=== PATIENT | male | born 1960 | race Two or more races ===

== ENCOUNTER 2016-08-20 12:25 | Observation (INO) | payer OTHER ==
--- NOTE | 2016-08-20 14:03 | ED ---
General Adult HPI - General Chief complaint: Chest Pain Stated complaint: HBP Time Seen by Provider: 08/20/16 13:44 Source: patient, family, precinct police lieutenant Mode of arrival: ambulatory Limitations: language barrier - History of Present Illness Initial comments: 56-year-old male presenting for sore throat and chest pain. Patient states this is been an issue intermittently for the past 4 months but worsening over the past few days. He denies any shortness of breath associated. Denies any fevers or chills. He does smoke cigarettes. He denies any cough. He has not tried any medications for this. He has not followed up with a regular doctor for this. Patient does speak Georgian there is a language barrier. Patient's friend is present with him and translating. They were offered an precinct police lieutenant but they declined. - Related Data Home Medications Medication Instructions Recorded Confirmed No Known Home Medications [No 08/20/16 08/20/16 Known Home Medications] Allergies Allergy/AdvReac Type Severity Reaction Status Date / Time No Known Allergies Allergy Verified 08/20/16 13:53 Review of Systems ROS Statement: Those systems with pertinent positive or pertinent negative responses have been documented in the HPI. ROS Other: All systems not noted in ROS Statement are negative. Past Medical History Past Medical History: Hyperlipidemia History of Any Multi-Drug Resistant Organisms: None Reported Past Surgical History: No Surgical Hx Reported Past Psychological History: No Psychological Hx Reported Smoking Status: Current every day smoker Past Alcohol Use History: None Reported Past Drug Use History: None Reported General Exam - General Exam Comments Initial Comments: General: Awake and Alert. No acute distress. Does not appear acutely ill. Eyes: ASHOK, EOM intact. No nystagmus. No scleral icterus. HENT: Atraumatic, normocephalic. Mucous membranes moist. Trachea midline. Poor dentition. Neck: The neck is supple, there is no tenderness or JVD. Cardiovascular: Regular rate and rhythm. No murmur, rub, or gallop is appreciated. Distal pulses intact. Respiratory: Lungs are clear to auscultation bilaterally. No wheezes, rales, rhonchi. No respiratory distress. Gastrointestinal: Soft, Nontender. No rebound or guarding. Non-distended. No masses or organomegaly noted. No CVA tenderness. Musculoskeletal: No tenderness. Normal ROM. No gross deformity. No strength deficits. Neurological: A&Ox3. CN II-XII grossly intact, There are no obvious motor or sensory deficits. Coordination appears grossly intact. Speech is normal. Skin: Skin is warm and dry and no rashes or lesions are noted. Psychiatric: Cooperative, appropriate mood & affect, normal judgment. Limitations: language barrier Course Vital Signs 08/20/16 08/20/16 08/20/16 13:27 14:07 15:07 Temperature 97.7 F Pulse Rate 62 55 L 57 L Respiratory 17 16 16 Rate Blood Pressure 128/83 128/76 144/85 O2 Sat by Pulse 100 97 98 Oximetry 08/20/16 16:37 Temperature 98.2 F Pulse Rate 58 L Respiratory 16 Rate Blood Pressure 133/85 O2 Sat by Pulse 99 Oximetry EKG Findings - EKG Comments: EKG Findings:: EKG 13:40. Normal sinus rhythm. Rate 62. CO 124. QRS 86. QT/ QTc 42/408. Normal axis. No STEMI. Normal EKG. Medical Decision Making - Medical Decision Making 56-year-old male presented for sore throat and chest pain. Lab work was stable CBC. Stable BMP. Initial troponin is negative. Patient reevaluated and states that he is feeling well overall. He does state that he is feeling some shortness of breath at this time. Patient ordered breathing treatment. Updated patient and friend on labs and imaging. Discussed concern for age and risk factors for further evaluation of ACS rule out and stress testing. Patient is agreeable to this. Discussed with Dr. Fung, agrees with plan for admit. - Lab Data Result diagrams: 08/20/16 14:05 08/20/16 14:05 Lab Results 08/20/16 08/20/16 08/20/16 Range/Units 14:05 14:05 14:05 WBC 3.8 (3.8-10.6) k/uL RBC 6.07 H (4.30-5.90) m/uL Hgb 15.9 (13.0-17.5) gm/dL Hct 49.2 (39.0-53.0) % MCV 81.1 (80.0-100.0) fL MCH 26.2 (25.0-35.0) pg MCHC 32.2 (31.0-37.0) g/dL RDW 12.3 (11.5-15.5) % Plt Count 194 (150-450) k/uL Neutrophils % 51 % Lymphocytes % 35 % Monocytes % 8 % Eosinophils % 3 % Basophils % 1 % Neutrophils # 2.0 (1.3-7.7) k/uL Lymphocytes # 1.3 (1.0-4.8) k/uL Monocytes # 0.3 (0-1.0) k/uL Eosinophils # 0.1 (0-0.7) k/uL Basophils # 0.0 (0-0.2) k/uL Sodium 137 (137-145) mmol/L Potassium 4.1 (3.5-5.1) mmol/L Chloride 104 (98-107) mmol/L Carbon Dioxide 29 (22-30) mmol/L Anion Gap 4 mmol/L BUN 17 (9-20) mg/dL Creatinine 0.90 (0.66-1.25) mg/dL Est GFR (MDRD) Af Amer >60 (>60 ml/min/1.73 sqM) Est GFR (MDRD) Non-Af >60 (>60 ml/min/1.73 sqM) Glucose 73 L (74-99) mg/dL Calcium 8.7 (8.4-10.2) mg/dL Magnesium 2.0 (1.6-2.3) mg/dL Troponin I 0.021 (0.000-0.034) ng/mL - EKG Data -: EKG Interpreted by [facility] EKG shows normal: sinus rhythm Rate: normal - Radiology Data Radiology results: report reviewed, image reviewed Disposition Clinical Impression: Chest pain, SOB (shortness of breath), Tobacco abuse Disposition: ADMITTED IP TO THIS [facility] Condition: Stable Decision to Admit Reason: Admit from EC
[2016-08-20 14:21] LABS: Basophils % (A) 1 %; CH 26.2; CHCM 32.5; Eosinophils # (A) 0.1 k/uL (0-0.7); Eosinophils % (A) 3 %; HCT 49.2 % (39.0-53.0); HDW 2.66; HGB 15.9 gm/dL (13.0-17.5); Luc % (Auto) 3; Lymphocytes # (A) 1.3 k/uL (1.0-4.8); Lymphocytes % (A) 35 %; MCH 26.2 pg (25.0-35.0); MCHC 32.2 g/dL (31.0-37.0); MCV 81.1 fL (80.0-100.0); Mean Platelet Volume 6.7; Monocytes # (A) 0.3 k/uL (0-1.0); Monocytes % (A) 8 %; Neutrophils % (A) 51 %; RBC 6.07 m/uL (4.30-5.90); RDW 12.3 % (11.5-15.5); WBC 3.8 k/uL (3.8-10.6); WBC (Perox) 3.59
[2016-08-20 14:33] LABS: Anion Gap 4 mmol/L; Blood Urea Nitrogen 17 mg/dL (9-20); Calcium 8.7 mg/dL (8.4-10.2); Carbon Dioxide 29 mmol/L (22-30); Chloride 104 mmol/L (98-107); Glucose 73 mg/dL (74-99); Non-African American GFR(MDRD) >60 (>60 ml/min/1.73 sqM); Potassium 4.1 mmol/L (3.5-5.1); Sodium 137 mmol/L (137-145)
--- NOTE | 2016-08-20 15:17 | XR ---
EXAMINATION TYPE: XR chest 2V DATE OF EXAM: 08/20/2016 3:03 PM COMPARISON: Prior chest x-ray for April 2014 HISTORY: Hypertension and pain TECHNIQUE: Frontal and lateral views of the chest are obtained. FINDINGS: There is no focal air space opacity, pleural effusion, or pneumothorax seen. The cardiac silhouette size is within normal limits. There are overlying cardiac leads. There is eventration of t he right hemidiaphragm. The osseous structures are intact. IMPRESSION: No acute cardiopulmonary process.
[2016-08-20] MEDS ORDERED: ASPIRIN 81 MG CHEW PO STA (15:42)
[2016-08-20] MEDS ORDERED: IPRATROPIUM-ALBUTEROL 3 ML NEB INHALATION STA (15:42)
[2016-08-20] MEDS ORDERED: ACETAMINOPHEN TAB 325 MG TAB PO PRN (15:44)
[2016-08-20] MEDS ORDERED: NALOXONE 0.4 MG/ML 1 ML VIAL IV PRN (15:44)
[2016-08-20] MEDS ORDERED: ONDANSETRON 4 MG/2 ML VIAL IVP PRN (15:44)
[2016-08-20] MEDS ORDERED: NITROGLYCERIN SL TABS 0.4 MG TAB SUBLINGUAL PRN (15:45)
[2016-08-20 16:27] LABS: Glucose,Whole Blood 85 mg/dL (75-99)
[2016-08-20] MEDS: HEPARIN SODIUM,PORCINE 5,000 UNIT/ML 1 ML VIAL SQ SCH ×2 (20:15→20:46)
[2016-08-20 21:04] LABS: Creatine Kinase MB 0.3 ng/mL (0.0-2.4); Troponin I 0.02 ng/mL (0.000-0.034)
[2016-08-21 03:03] LABS: Basophils % (A) 1 %; CH 26.2; CHCM 32.3; Eosinophils # (A) 0.1 k/uL (0-0.7); Eosinophils % (A) 2 %; HCT 46.8 % (39.0-53.0); HDW 2.64; HGB 15.4 gm/dL (13.0-17.5); Luc # (Auto) 0.11; Luc % (Auto) 2; Lymphocytes # (A) 1.7 k/uL (1.0-4.8); Lymphocytes % (A) 36 %; MCH 26.7 pg (25.0-35.0); MCHC 32.8 g/dL (31.0-37.0); MCV 81.3 fL (80.0-100.0); Mean Platelet Volume 7.6; Monocytes # (A) 0.3 k/uL (0-1.0); Monocytes % (A) 6 %; Neutrophils # (A) 2.5 k/uL (1.3-7.7); Neutrophils % (A) 53 %; RBC 5.76 m/uL (4.30-5.90); RDW 12.2 % (11.5-15.5); WBC 4.7 k/uL (3.8-10.6); WBC (Perox) 4.93
[2016-08-21 03:16] LABS: Anion Gap 8 mmol/L; Blood Urea Nitrogen 23 mg/dL (9-20); Calcium 8.8 mg/dL (8.4-10.2); Carbon Dioxide 22 mmol/L (22-30); Chloride 108 mmol/L (98-107); Cholesterol 238 mg/dL (<200); Glucose 106 mg/dL (74-99); HDL Cholesterol 29 mg/dL (40-60); Non-African American GFR(MDRD) >60 (>60 ml/min/1.73 sqM); Potassium 4.4 mmol/L (3.5-5.1); Sodium 138 mmol/L (137-145)
[2016-08-21 03:18] LABS: Creatine Kinase 54 U/L (55-170)
[2016-08-21 03:31] LABS: Creatine Kinase MB <0.2 ng/mL (0.0-2.4)
[2016-08-21 03:37] LABS: Triglycerides 799 mg/dL (<150)
[2016-08-21 06:24] LABS: Cholesterol 238 mg/dL (<200); HDL Cholesterol 31 mg/dL (40-60); Triglycerides 481 mg/dL (<150)
[2016-08-21] MEDS ORDERED: ASPIRIN 325 MG TAB PO SCH (09:00)
[2016-08-21] MEDS: HEPARIN SODIUM,PORCINE 5,000 UNIT/ML 1 ML VIAL SQ SCH (09:25)
[2016-08-21 10:22] VITALS: RESP 18
--- NOTE | 2016-08-21 10:24 | P.HPIM ---
History of Present Illness H&P Date: 08/21/16 Chief Complaint: Chest pain This is a 56-year-old male, a patient of Dr. Crain. He has a known past medical history of nicotine dependence and hyperlipidemia. Patient is not on any medications at home. It is difficult to obtained history. There is a language barrier. Patient only speaks Italian. Patient's cousin was able to help translate. It appears patient came in with chest pains in the center of his chest that has worsened over the last few days. Patient has cough but reports that it's not new. Asked if he has a sore throat. At this time he denies sore throat. Denies any fevers chills or sweats. Denies any shortness of breath. Denies any nausea or vomiting. Denies any bowel movement changes or urinary symptoms. Denies any past cardiac history. Patient has been admitted to the observation floor cardiology has been consulted. Troponins are negative 3 sets EKG shows normal sinus rhythm. Chest x-ray was negative. He did have hypertrophic glycemia with a triglyceride level of 799 and repeat was 481. Cholesterol 238 HDL 31 Review of Systems Please refer to HPI otherwise unremarkable Past Medical History Past Medical History: Chest Pain / Angina, Hyperlipidemia, Prostate Disorder Additional Past Medical History / Comment(s): pt/family refused the sign language interpreter line. family member elsa helped w/ hx. enlarged prostate, occ dizziness, murmur ,uses glasses for reading, some loss hearing rt ear,color blind History of Any Multi-Drug Resistant Organisms: None Reported Past Surgical History: No Surgical Hx Reported Additional Past Surgical History / Comment(s): denies ever having any sx Past Anesthesia/Blood Transfusion Reactions: No Reported Reaction Past Psychological History: No Psychological Hx Reported Additional Psychological History / Comment(s): lives with and brother. Smoking Status: Current every day smoker Past Alcohol Use History: None Reported Additional Past Alcohol Use History / Comment(s): started smoking age 19 , smokes 1 ppd. Past Drug Use History: None Reported - Past Family History Father Family Medical History: No Reported History Mother Family Medical History: No Reported History Medications and Allergies Home Medications Medication Instructions Recorded Confirmed Type No Known Home Medications [No 08/20/16 08/20/16 History Known Home Medications] Allergies Allergy/AdvReac Type Severity Reaction Status Date / Time No Known Allergies Allergy Verified 08/20/16 13:53 Physical Exam Vitals: Vital Signs Temp Pulse Pulse Resp BP BP Pulse Ox 08/21/16 08:00 97.9 F 60 16 106/65 98 08/21/16 04:00 97.8 F 64 16 120/68 97 08/21/16 00:00 98.2 F 63 16 126/77 96 08/20/16 20:00 98.3 F 68 16 132/77 98 08/20/16 17:11 97.8 F 61 18 129/75 100 08/20/16 16:37 98.2 F 58 L 16 133/85 99 Intake and Output 08/20/16 08/21/16 08/21/16 22:59 06:59 14:59 Other: Voiding Method Toilet Toilet Weight 75.3 kg Head normocephalic Neck supple Lungs coarse breath sounds that clear with cough Heart regular rate and rhythm S1-S2, no rub or gallop Abdomen is soft nontender nondistended positive bowel sounds no hepatosplenomegaly Extremities no edema Neuro alert and orientated to 3 Results CBC & Chem 7: 08/21/16 02:07 08/21/16 02:07 Labs: Abnormal Lab Results - Last 24 Hours (Table) 08/21/16 08/21/16 08/21/16 Range/Units 02:07 02:07 05:34 Chloride 108 H (98-107) mmol/L BUN 23 H (9-20) mg/dL Glucose 106 H (74-99) mg/dL Total Creatine Kinase 54 L (55-170) U/L Triglycerides 799 H 481 H (<150) mg/dL Cholesterol 238 H 238 H (<200) mg/dL HDL Cholesterol 29 L 31 L (40-60) mg/dL Thrombosis Risk Factor Assmnt - Choose All That Apply Any of the Below Risk Factors Present?: Yes Each Factor Represents 1 point: Age 41-60 years, Obesity (BMI >25) Other Risk Factors: No Other congenital or acquired thrombophilia - If yes, enter type in comment: No Thrombosis Risk Factor Assessment Total Risk Factor Score: 2 Thrombosis Risk Factor Assessment Level: Low Risk Assessment and Plan Plan: 1. Chest pain: [place] ruled out. Troponins negative 3 sets. EKG showing normal sinus rhythm. Cardiology has been consulted. D-dimer level pending. Echo pending. Continue aspirin 2. Hyperlipidemia and hypertriglyceridemia: Discussed low-fat low-cholesterol diet. 3. Nicotine dependence: Discussed most smoking cessation for greater than [address] patient on nicotine patch 4. DVT prophylaxis subcu heparin and GI prophylaxis Pepcid Time with Patient: Greater than 30 (Greater than 50% of the total time spent in counseling and coordination of care.I performed an examination of the patient and discussed their management with the physician Funeral Arranger. I have reviewed the Physician Funeral Arranger's notes and agree with the documented findings and plan of care)
[2016-08-21] MEDS ORDERED: NICOTINE 21MG/24HR PATCH TRANSDERM SCH (10:30)
[2016-08-21] MEDS ORDERED: AMINOPHYLLINE 500 MG/20 ML VIAL IV PRN (10:49)
[2016-08-21] MEDS ORDERED: REGADENOSON 0.4 MG/5 ML SYRINGE IV ONE (10:49)
--- NOTE | 2016-08-21 11:49 | CONS ---
DATE OF CONSULTATION: Nicolette Rios is a 56-year-old gentleman. Consultation requested by Dr. Fung. Because of communication problems with language communication problem, unable to get a great history other than [id number] to get some information from the family members, which is also very sketchy. Patient is a smoker, 1 pack of cigarettes daily. The patient's EKGs have been normal. Enzymes have been normal. Chest x-rays have been normal. Patient has been having recurrent chest heaviness and pressure, pain intermittently with and without exertion, lasting only for a few seconds, comes and goes. In view of these atypical symptoms and cardiac enzymes are normal, EKGs are normal, will proceed with noninvasive studies because of language problems and unable to get a detailed history. Echocardiogram was done at the bedside and appears to be within normal limits. Family saw a few pictures, a few scans, first chamber looked fairly decent. Patient's review of systems cannot be obtained because of language problems. The patient does have hyperlipidemia. Cholesterol was also elevated at 238, triglycerides of 792 and HDL of 29. Patient is a current smoker and could not ascertain any family history of coronary artery disease. Physical examination revealed well-developed, well-nourished 56-year-old gentleman, not in any acute distress, oriented x3 with a pulse rate of 64 beats per minute and regular, blood pressure 120/68, respirations are 16. Head normocephalic. HEENT unremarkable. Neck is supple. No thyroid enlargement. No bruit noted. Good carotid upstroke bilaterally. Chest is symmetrical. CARDIAC EXAMINATION: Regular rate and rhythm. S1 and S2. Scattered rhonchi noted. Lungs are clinically to auscultation with scattered rhonchi. ABDOMEN: Soft, no organomegaly. Active bowel sounds. EXTREMITIES: Peripheral pulses. No pedal edema. APICULTURIST examination: Grossly within normal limits. EKG revealed normal sinus rhythm, normal ST-T waves x2. Cardiac enzymes x3 are negative. ASSESSMENT: 1. Atypical chest pains. 2. Long-standing history of smoking. RECOMMENDATIONS: Proceed with Lexiscan to rule out underlying ischemic heart disease. If this study is normal, patient will be able to go home with complete cessation of smoking. Advice was given to the patient and family. Patient will follow with Dr. Fung and cardiac follow up with Dr. Samman because I cannot communicate because of the language barrier.
[2016-08-21 11:51] VITALS: BP 114/74; PULSE 62; TEMP 97.5
--- NOTE | 2016-08-21 12:10 | ECHOF ---
Referral Reason:lv function MEASUREMENTS -------- HEIGHT: 165.1 cm WEIGHT: 75.3 kg BP: 106/65 IVSd: 1.0 cm (0.6 - 1.1) LVIDd: 2.5 cm (3.9 - 5.3) LVPWd: 1.3 cm (0.6 - 1.1) IVSs: 1.4 cm LVIDs: 1.2 cm LVPWs: 1.3 cm MV E Bert: 0.66 m/s MV DecT: 291 ms MV A Bert: 0.53 m/s MV E/A Ratio: 1.25 RAP: 5.00 mmHg RVSP: 11.59 mmHg FINDINGS -------- Sinus rhythm. This was a technically adequate study. The left ventricular size is normal. Left ventricular wall thickness is normal. Overall left ventricular systolic function is normal with, an EF between 55 - 60 %. The right ventricle is normal in size and function. The left atrium is normal in size. The right atrium is normal in size. The aortic valve is trileaflet, and appears structurally normal. No aortic stenosis or regurgitation. The mitral valve is normal. There is trace mitral regurgitation. Trace tricuspid regurgitation present. The right ventricular systolic pressure, as measured by Doppler, is 11.59mmHg. The pulmonic valve was not well visualized. There is no pericardial effusion. CONCLUSIONS -------- 1. Sinus rhythm. 2. The pulmonic valve was not well visualized. 3. There is no pericardial effusion. 4. This was a technically adequate study. 5. Left ventricular wall thickness is normal. 6. Overall left ventricular systolic function is normal with, an EF between 55 - 60 %. 7. The left atrium is normal in size. 8. The aortic valve is trileaflet, and appears structurally normal. No aortic stenosis or regurgitation. 9. There is trace mitral regurgitation. 10. Trace tricuspid regurgitation present. 11. The right ventricular systolic pressure, as measured by Doppler, is 11.59mmHg. TRIM STENCIL MAKER: Maureen Zavaleta RD
--- NOTE | 2016-08-21 13:21 | EST ---
DATE OF SERVICE: 08/20/2016 AGE: 56Y SEX: M HT: 5 foot 5 WT: 166 lbs. Protocol Carlos A: Other: Stage: Dur. of Exercise: *Heart Rate Blood Pressure *Rest: 62 Rest: 119/88 * *Max. Achieved: 97 Maximum BP: 150/53 85% PMHR: 100% PMHR: *METS: INDICATIONS: MEDICATIONS: Baseline rhythm is sinus mechanism, rate of 62, normal axis and intervals. Normal electrocardiogram. Baseline blood pressure 119/88 mmHg. Patient received injection of Lexiscan. Electrocardiograph monitoring revealed no evidence of diagnostic ischemic ST deviation. Cardiolite was injected per protocol. CONCLUSION: 1. Nondiagnostic electrocardiograph stress testing. 2. Nuclear images will be reported separately.
--- NOTE | 2016-08-21 13:52 | NM ---
EXAMINATION TYPE: NM stress lexiscan cardiolite DATE OF EXAM: 08/21/2016 1:37 PM COMPARISON: NONE HISTORY: History of hypercholesteremia, asthma, and prior tobacco use presents with chest pain, short ness of breath, and palpitations. TECHNIQUE: After the intravenous administration of 11 mCi Tc 99m Sestamibi - Cardiolite resting SPEC T images acquired 60 minutes post injection. The patient received 0.4mg Lexiscan, 27.5 mCi Tc 99m Sestamibi - Stress images obtained [address] injection FINDINGS: Review of stress and rest SPECT images demonstrates no distinct perfusion abnormality. Gated analysi s shows normal wall motion with an estimated left ventricular ejection fraction of 69 %. IMPRESSION: No scintigraphic evidence for reversible ischemia.
--- NOTE | 2016-08-21 14:06 | P.DS ---
Providers Date of admission: 08/20/16 15:44 Expected date of discharge: 08/21/16 Attending physician: Talita Fung Consults: 08/20/16 18:39 Consult Physician Routine Consulting Provider: [facility] Consult Reason/Comments: chest pain Do you want consulting provider notified?: Yes, Notify in am Primary care physician: Peyton Crain [facility] Course: Discharge diagnosis 1. Chest pain: [place] ruled out. Troponins negative 3 sets. EKG showing normal sinus rhythm. D-dimer and normal range. Echo shows a preserved EF. Stress test was negative 2. Hyperlipidemia and hypertriglyceridemia: Discussed low-fat low-cholesterol diet. Cardiology added Lipitor 3. Nicotine dependence: Discussed most smoking cessation for greater than [address] patient on nicotine patch Hospital course This is a 56-year-old male, a patient of Dr. Crain. He has a known past medical history of nicotine dependence and hyperlipidemia. Patient is not on any medications at home. It is difficult to obtained history. There is a language barrier. Patient only speaks Slovak. Patient's cousin was able to help translate. It appears patient came in with chest pains in the center of his chest that has worsened over the last few days.Troponins are negative 3 sets EKG shows normal sinus rhythm. Chest x-ray was negative. He did have hypertriglyceridemia with a triglyceride level of 799 and repeat was 481. Cholesterol 238 HDL 31. Cardiology added Lipitor 80 mg at bedtime. Patient was also started on nicotine patch. Educated to quit smoking. Underwent stress test which was negative. Cardiology has cleared patient home since Restasis negative. Patient Mycostatin for discharge. Please refer to chart for any further details. Patient Condition at Discharge: Stable Plan - Discharge Summary New Discharge Prescriptions: Atorvastatin [Lipitor] 80 mg PO HS #30 tab Nicotine 21Mg/24Hr Patch [Habitrol] 1 patch TRANSDERM DAILY #30 patch Discharge Medication List Atorvastatin [Lipitor] 80 mg PO HS #30 tab 08/21/16 [Rx] Nicotine 21Mg/24Hr Patch [Habitrol] 1 patch TRANSDERM DAILY #30 patch 08/21/16 [ Rx] Follow up Appointment(s)/Referral(s): Tiffanie Bledsoe MD [STAFF PHYSICIAN] - 1 Week Peyton Crain MD [Primary Care Provider] - 1 Week Activity/Diet/Wound Care/Special Instructions: Diet: low fat and low cholesterol Activity: as tolerated Discharge Disposition: HOME SELF-CARE
[2016-08-21] MEDS ORDERED: ATORVASTATIN 80 MG TAB PO SCH (21:00)
[2016-08-22] MEDS ORDERED: FAMOTIDINE 20 MG TAB PO SCH (09:00)
== END 2016-08-21 14:53 | disposition home or self-care (01) ==
LOC: EC 12:25 → 3OBS 15:44
PROVIDERS: ADMIT Internal Medicine; ATTEND Internal Medicine
DX: R07.89 Other chest pain (principal); R05 Cough; R06.02 Shortness of breath; J02.9 Acute pharyngitis, unspecified; E78.5 Hyperlipidemia, unspecified; E78.1 Pure hyperglyceridemia; F17.210 Nicotine dependence, cigarettes, uncomplicated
CPT/HCPCS: 99285; 36415; 93005; 93017; 93306; 85379; 80061; 80048 ×2; 82550 ×2; 82553 ×2; 83735; 84484 ×2; 85025 ×2; 71020; 78452; G0378 ×2; A9500; S4990; J1644 ×2; J2785; 96372